=== PATIENT | female | born 1980 | race Hispanic/Latino ===

== ENCOUNTER 2016-11-28 01:45 | Emergency (ER) | payer SELFPAY ==
[2016-11-28] MEDS ORDERED: Adacel (T-DAP) 0.5 ML VIAL ONE (02:21)
[2016-11-28] MEDS ORDERED: ALPRAZolam 0.25 MG TAB ONE (02:26)
[2016-11-28] MEDS ORDERED: traMADol HCl 50 MG TAB ONE (02:44)
[2016-11-28 02:48] LABS: #Basophils 0.1 thou/uL (0.0-0.2); #Eosinphils 0.2 thou/uL (0.0-0.7); #Lymphocytes 2.4 thou/uL (1.20-3.40); #Monocytes 0.5 thou/uL (0.11-0.59); %Basophils 1.4 % (0.0-1.0); %Eosinophils 2.6 % (0.0-10.0); %Lymphocytes 38.9 % (21.0-51.0); %Monocytes 7.9 % (0.0-10.0); %Neutrophils 49.2 % (42.0-75.0); Hemoglobin 12.1 g/dL (12.0-16.0); Mean Corpuscular HGB CONC 32.3 g/dL (32.0-36.0); Mean Corpuscular Hemoglobin 28.8 pg (27.0-31.0); Mean Corpuscular Volume 89.1 fl (81.0-99.0); Mean Platelet Volume 6.7 fL (7.4-10.4); Platelet Count 200 thou/uL (130-400); RBC Distribution Width 12.6 % (11.5-14.5)
[2016-11-28] MEDS ORDERED: Cephalexin 500 MG CAP ONE (03:30)
[2016-11-28] MEDS ORDERED: Triple Antibiotic Oint 1 GM Packet ONE (03:31)
--- NOTE | 2016-11-28 08:33 | RAD ---
EXAM: RIGHT HAND 3 VIEWS: HISTORY: Laceration with glass 2 days ago. Evaluate for foreign body. COMPARISON: None. FINDINGS: No fracture. No cortical irregularity. No radiopaque foreign bodies. IMPRESSION: 1. No fracture. 2. No radiopaque foreign body. POS: OFF
== END 2016-11-28 03:40 | disposition home or self-care (01) ==
LOC: NAV ERS 01:45
DX: S61.411A Laceration without foreign body of right hand, initial encounter (principal); F17.210 Nicotine dependence, cigarettes, uncomplicated; Z23 Encounter for immunization; W25.XXXA Contact with sharp glass, initial encounter
CPT/HCPCS: 85025; 90471; 90715

== ENCOUNTER 2017-09-13 15:49 | Emergency (ER) | payer SELFPAY ==
[2017-09-13] MEDS ORDERED: HYDROcodone/Acetaminophen 10/325 mg Tablet ONE (16:00)
[2017-09-13 16:10] LABS: Bilirubin Negative (Negative); Blood, Urine Large (Negative); Clarity Clear (Clear); Glucose, Urine (Dipstick) Negative (Negative); Leukocyte Negative (Negative); Nitrite Negative (Negative); Protein, Urine (Dipstick) Negative (Neg-Trace); pH, Urine 7.5 (5.0-9.0)
[2017-09-13 16:17] LABS: Bacteria/HPF 1+ HPF (None Seen); RBC/HPF GREATER THAN 50-TNTC HPF (0-3); WBC/HPF 0-3 HPF (0-3)
[2017-09-13] MEDS ORDERED: Oseltamivir 75 MG CAP ONE (16:30)
[2017-09-13] MEDS ORDERED: Cipro 250 MG TAB ONE (16:30)
== END 2017-09-13 16:44 | disposition home or self-care (01) ==
LOC: NAV ERS 15:49
DX: J11.1 Influenza due to unidentified influenza virus with other respiratory manifestations (principal); N39.0 Urinary tract infection, site not specified; F17.210 Nicotine dependence, cigarettes, uncomplicated
CPT/HCPCS: 81003; 81015; 87081; 87430; 87804; 99283

== ENCOUNTER 2019-01-24 03:27 | Emergency (ER) | payer SELFPAY ==
[2019-01-24] MEDS ORDERED: Thiamine 100 MG TAB ONE (04:25)
[2019-01-24] MEDS ORDERED: Pot Chloride/Pot Bicarb/Cit Ac 25 mEq Effervescent Tablet ONE (04:25)
== END 2019-01-24 09:51 | disposition short-term general hospital (02) ==
LOC: NAV ERS 03:27
DX: R45.851 Suicidal ideations (principal)
CPT/HCPCS: 99285

== ENCOUNTER 2020-01-31 04:36 | Emergency (ER) | payer SELFPAY ==
[2020-01-31] MEDS ORDERED: Sodium Chloride 0.9% 1,000 ML ONE (05:04)
[2020-01-31 05:09] LABS: #Basophils 0.1 thou/uL (0.0-0.2); #Eosinphils 0.1 thou/uL (0.0-0.7); #Lymphocytes 2.3 thou/uL (1.20-3.40); #Monocytes 0.7 thou/uL (0.11-0.59); %Basophils 1.1 % (0.0-1.0); %Eosinophils 0.6 % (0.0-10.0); %Neutrophils 61.3 % (42.0-75.0); Hemoglobin 12.2 g/dL (12.0-16.0); Mean Corpuscular HGB CONC 30.5 g/dL (32.0-36.0); Mean Corpuscular Hemoglobin 27.2 pg (27.0-31.0); Mean Platelet Volume 7.5 fL (7.4-10.4); Platelet Count 265 thou/uL (130-400); RBC Distribution Width 12.9 % (11.5-14.5); Red Blood Cell (RBC) Count 4.51 mill/uL (4.20-5.40); White Blood Cell (WBC) Count 8.1 thou/uL (4.8-10.8)
[2020-01-31 05:21] LABS: Bilirubin Small (Negative); Blood, Urine Moderate (Negative); Clarity Clear (Clear); Glucose, Urine (Dipstick) Negative (Negative); Leukocyte Negative (Negative); Nitrite Negative (Negative); Protein, Urine (Dipstick) Negative (Neg-Trace); Urobilinogen 0.2 mg/dL (Less than 2)
[2020-01-31 05:22] LABS: ALT (SGPT) 13 U/L (8-55); AST (SGOT) 17 U/L (5-34); Albumin 4.3 g/dL (3.5-5.0); Alkaline Phosphatase 68 U/L (40-110); Anion Gap 18 mmol/L (10-20); BUN (Urea Nitrogen) 12 mg/dL (7.0-18.7); Bilirubin, Total 0.6 mg/dL (0.2-1.2); Calc. Creatinine Clearance 0 mL/min (70-130); Carbon Dioxide 19 mmol/L (22-29); Chloride 108 mmol/L (98-107); Estimated GFR-MDRD 79; Globulin 3.4 g/dL (2.4-3.5); Glucose 88 mg/dL (70-105); Potassium 3.5 mmol/L (3.5-5.1); Protein, Total 7.7 g/dL (6.0-8.3); Sodium 141 mmol/L (136-145)
[2020-01-31 05:23] LABS: Pregnancy Test - Urine (BHCG) Negative (Negative); Pregu Control Background? CLEAR/WHITE (CLR/WHITE); Pregu Control Bar Appear? YES (CONTROL BAR); Specific Gravity 1.025 (1.002-1.036)
[2020-01-31 05:24] LABS: Bacteria/HPF Rare-Few HPF (None Seen)
[2020-01-31 05:30] LABS: Amphetamine Detected (NotDetected); Barbiturates Screen Not Detected (NotDetected); Benzodiazepine Screen Not Detected (NotDetected); Cocaine Metabolite Screen Not Detected (NotDetected); Medtox Control Line Valid? VALID (VALID); Methadone Not Detected (NotDetected); Methamphetamine Detected (NotDetected); Opiate Screen Not Detected (NotDetected); Oxycodone Screen Not Detected (NotDetected); Phencyclidine (PCP) Not Detected (NotDetected); THC/Cannabinoid Screen Not Detected (NotDetected); Tricyclic Screen Not Detected (NotDetected)
--- NOTE | 2020-01-31 07:44 | RAD ---
EXAM: Single view of the chest HISTORY: Chest pain COMPARISON: None FINDINGS: Single view of the chest shows a normal sized cardiomediastinal silhouette. There is no radha dence of consolidation, mass, or pleural effusion. The bones are unremarkable. IMPRESSION: No evidence of acute cardiopulmonary disease
== END 2020-01-31 06:10 | disposition home or self-care (01) ==
LOC: NAV ERS 04:36
DX: R07.9 Chest pain, unspecified (principal); F15.10 Other stimulant abuse, uncomplicated; F17.210 Nicotine dependence, cigarettes, uncomplicated
CPT/HCPCS: 71045; 80053; 80306; 81003; 81015; 81025; 84443; 84484; 85025; 85379; 87086; 93005; 94760; 96360; J7050

== ENCOUNTER 2021-03-18 17:07 | Emergency (ER) | payer SELFPAY ==
[2021-03-18] MEDS ORDERED: Mag-Al Plus 1200 MG/1200 MG/120 MG/30 ML UDCUP ONE (17:36)
[2021-03-18] MEDS ORDERED: Pantoprazole 40 MG VIAL ONE (17:36)
[2021-03-18] MEDS ORDERED: Lidocaine Viscous Sol 2% 15 ml UD Cup ONE (17:36)
[2021-03-18 18:10] LABS: #Basophils 0.1 thou/uL (0.0-0.2); #Lymphocytes 0.9 thou/uL (1.20-3.40); #Monocytes 0.6 thou/uL (0.11-0.59); #Neutrophils 2.2 thou/uL (1.40-6.50); %Basophils 1.4 % (0.0-1.0); %Eosinophils 0.7 % (0.0-10.0); %Lymphocytes 23.7 % (21.0-51.0); %Monocytes 15.9 % (0.0-10.0); %Neutrophils 58.3 % (42.0-75.0); Hemoglobin 13.2 g/dL (12.0-16.0); Mean Corpuscular HGB CONC 30.2 g/dL (32.0-36.0); Mean Corpuscular Volume 89.2 fL (78.0-98.0); Mean Platelet Volume 7.4 fL (7.4-10.4); Platelet Count 246 thou/uL (130-400); RBC Distribution Width 14.4 % (11.5-14.5); Red Blood Cell (RBC) Count 4.88 mill/uL (4.20-5.40); White Blood Cell (WBC) Count 3.8 thou/uL (4.8-10.8)
[2021-03-18 18:19] LABS: ALT (SGPT) 60 U/L (8-55); AST (SGOT) 33 U/L (5-34); Albumin 3.9 g/dL (3.5-5.0); Alkaline Phosphatase 84 U/L (40-110); Anion Gap 11 mmol/L (10-20); BUN (Urea Nitrogen) 8 mg/dL (7.0-18.7); Bilirubin, Total 0.1 mg/dL (0.2-1.2); Calc. Creatinine Clearance 0 mL/min (70-130); Calcium 8.6 mg/dL (7.8-10.44); Carbon Dioxide 24 mmol/L (22-29); Chloride 105 mmol/L (98-107); Globulin 3.4 g/dL (2.4-3.5); Glucose 88 mg/dL (70-105); Lipase 32 U/L (8-78); Potassium 3.8 mmol/L (3.5-5.1); Protein, Total 7.3 g/dL (6.0-8.3); Sodium 136 mmol/L (136-145)
[2021-03-18 18:45] LABS: Bilirubin Negative (Negative); Blood, Urine Moderate (Negative); Clarity Slightly Cloudy (Clear); Glucose, Urine (Dipstick) Negative (Negative); Ketone, Urine Negative (Negative); Leukocyte Negative (Negative); Nitrite Negative (Negative); Protein, Urine (Dipstick) Negative (Neg-Trace); Urobilinogen 0.2 mg/dL (Less than 2)
[2021-03-18 18:46] LABS: Specific Gravity, Urine 1.017 (1.002-1.036)
[2021-03-18 18:47] LABS: Transitional Epithelial 0-3 HPF (None Seen); WBC/HPF 0-3 HPF (0-3)
[2021-03-18 18:48] LABS: Pregnancy Test - Urine (BHCG) Negative (Negative); Pregu Control Background? CLEAR/WHITE (CLR/WHITE); Pregu Control Bar Appear? YES (CONTROL BAR); Specific Gravity 1.017 (1.002-1.036)
[2021-03-19 17:57] LABS: SARS-CoV-2 PCR by NAA DETECTED (NotDetected)
== END 2021-03-18 19:02 | disposition home or self-care (01) ==
LOC: NAV ERS 17:07
DX: U07.1 COVID-19 (principal); R10.13 Epigastric pain; F17.210 Nicotine dependence, cigarettes, uncomplicated
CPT/HCPCS: 80053; 81003; 81015; 81025; 83690; 85025; 96374; C9113; U0003; U0005

== ENCOUNTER 2023-07-11 14:27 | Emergency (ER) | payer SELFPAY | END 2023-07-11 15:35 | disposition home or self-care (01) | LOC: NAV ERS 14:27 | DX: M79.10 Myalgia, unspecified site (principal); R51.9 Headache, unspecified; F17.210 Nicotine dependence, cigarettes, uncomplicated | CPT/HCPCS: 99283 ==